=== PATIENT | female | born 2005 | race Caucasian/White ===

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

== ENCOUNTER 2025-03-31 00:08 | Emergency (ER) | payer OTHER ==
[~2025-03-31] VITALS: Ht 160 cm; Wt 49.3 kg
[~2025-03-31 00:08] MED LIST changes: +KETO10TAB PO; +PRED10TA2 PO; +SERT50TA29
[2025-03-31 08:25] LABS: BASO % 0.1 % (0.0-1.0); EOS % 0.3 % (0.0-3.0); HEMATOCRIT 37.9 % (36.0-47.0); HEMOGLOBIN 12.9 g/dl (12.0-15.5); LYMPH # 1.8 10^3/uL (1.5-5.0); LYMPH % 12.2 % (24.0-44.0); MEAN CORPUSCULAR HEMOGLOBIN 29.6 pg (27.0-33.0); MEAN CORPUSCULAR VOLUME 86.9 fl (80.0-96.0); MONO # 0.6 10^3/uL (0.0-0.8); MONO % 4.4 % (2.0-8.0); NEUTROPHILS # 12.1 10^3/uL (1.5-8.5); NEUTROPHILS % 82.7 % (36.0-66.0); PLATELET COUNT, AUTOMATED 257 10^3/uL (150-450); RED BLOOD COUNT 4.36 10^6/uL (4.00-5.40); WHITE BLOOD COUNT 14.6 10^3/uL (4.0-10.0)
[2025-03-31 08:29] LABS: KETONE, URINE AUTO RFX NEGATIVE (NEGATIVE); LEUKOCYTE ESTERASE UR AUTO RFX NEGATIVE (NEGATIVE); MUCUS, URINE RFX SMALL (NEGATIVE); NITRITE, URINE AUTO RFX NEGATIVE (NEGATIVE); RBC, URINE AUTO RFX 0 /HPF (0-3); SQUAM EPITHELIAL CELL UR AURFX 0 /HPF (0-6); WBC, URINE AUTO RFX 1 /HPF (0-3)
[2025-03-31 08:42] LABS: ERYTHROCYTE SEDIMENTATION RATE 6 mm/hr (0-20)
[2025-03-31] MEDS: diphenhydrAMINE 50 MG CAP PO ONE (08:56)
[2025-03-31 08:58] LABS: LIPASE 33 U/L (12-53)
[2025-03-31 09:00] LABS: BLOOD UREA NITROGEN 18 MG/DL (9-23); CALCIUM LEVEL 9.4 MG/DL (8.5-10.1); CARBON DIOXIDE LEVEL 24 MMOL/L (20-31); CHLORIDE LEVEL 106 MMOL/L (98-107); CREATININE FOR GFR 0.53 MG/DL (0.55-1.30); GLOMERULAR FILTRATION RATE > 90.0 (>60); GLUCOSE, FASTING 106 MG/DL (60-100); POTASSIUM SERUM 3.9 MMOL/L (3.5-5.1); SODIUM LEVEL 142 MMOL/L (136-145)
[2025-03-31 09:01] LABS: THYROID STIMULATING HORMONE 0.556 uIU/ML (0.48-4.17)
[2025-03-31 09:06] LABS: PROCALCITONIN 0.31 ng/ml
[2025-03-31 09:20] LABS: C REACTIVE PROTEIN QUANTITATIV 10.36 MG/DL (<1.0)
[2025-03-31] MEDS ORDERED: DIPH-435 PO ×2 (11:16→16:19)
[2025-03-31] MEDS ORDERED: ACET-1349 PO (11:16)
[2025-03-31] MEDS ORDERED: HOME MED LIST COMPLETE! XX SCH (11:20)
[2025-03-31 12:43] LABS: MONO SCRN NEGATIVE (NEGATIVE)
[2025-03-31] MEDS: ACETAMINOPHEN *IV* 500 MG in IV 1 EA IV ONE (14:13)
[2025-03-31 16:11] VITALS: BP 103/59; TEMP 96.7; O2SAT 95
[2025-03-31 16:19] LABS: GC DNA AMPLIFICATION NEGATIVE (NEGATIVE)
[2025-03-31] MEDS ORDERED: PRED10TA2 PO (16:19)
[2025-03-31] MEDS ORDERED: CETI-24 PO (16:19)
[2025-03-31] MEDS: diphenhydrAMINE HCL 25 MG CAP PO ONE (16:26)
[2025-04-03 13:48] LABS: ANA SCREEN, IFA NEGATIVE (NEGATIVE)
== END 2025-03-31 16:32 | disposition home or self-care (01) ==
LOC: M ED 00:08
DX: L50.9 Urticaria, unspecified (principal); R21 Rash and other nonspecific skin eruption; Z88.0 Allergy status to penicillin
CPT/HCPCS: 80048; 81001; 83690; 84145; 84443; 85025; 85652; 86038; 86140; 86308; 86780; 87486; 87581; 87590; 87633; 87798; 87810; 87850; 87880; 96374; 99284; J0136